=== PATIENT | female | born 1980 | race Caucasian/White ===

== ENCOUNTER 2017-09-19 23:11 | Emergency (ER) | payer MEDICAID ==
[2017-09-19 23:18] VITALS: BP 140/85
--- NOTE | 2017-09-19 23:26 | EDPHY ---
H & P Smoking Status: Current every day smoker Time Seen by Provider: 09/19/17 23:21 HPI/ROS: PHYSICIAN DOCUMENTATION: The patient was evaluated and managed by the Physician Charging Operator. My co- signature indicates that I have reviewed this chart and I agree with the findings and plan of care as documented. I am the secondary supervising physician. (Rut Mcfadden) CHIEF COMPLAINT: Right knee pain post mechanical fall HISTORY OF PRESENT ILLNESS: 37-year-old female in the ER complaining of acute right knee pain which occurred 3 hr prior to arrival when her shoe caught in tripped and she landed on her right anterior knee/patella. She is unable to bear weight. No proximal distal pain or injury. No head injury. No hip pain or injury. No ankle pain or injury. PHYSICAL EXAM (Prior to examination, patient consented to physical exam, hands were washed and my usual and customary physical exam procedures followed) 1) GENERAL: Well-developed, well-nourished, alert and oriented. Appears nontoxic answering questions appropriately. 2) HEAD: Normocephalic 3) HEENT: Pupils equal, round, reactive to light bilaterally. 4) LUNGS: Breathing comfortably. 5) MUSCULOSKELETAL: Exam of the right knee shows soft tissue swelling, tender to palpation medial aspect of right knee. . Compartments are soft. 6) SKIN: Intact no laceration no abrasion 7) VASCULAR: DP,PT pulses and cap refill present and brisk distally DIFFERENTIAL DIAGNOSIS: in no particular order including but not limited to fracture, sprain, compartment syndrome, septic arthritis, DVT Procedure: Crutches indications for crutch use discussed with patient. Patient fitted for crutches by ER staff. Observed ambulating with crutches. I think the patient has the capacity to safely use crutches. Usual and customary crutch walking precautions provided Procedure: Splint A knee immobilizer splint was applied by ER truck technician. After application of the splint I returned and re-examined the patient. The splint was adequately immobilizing the joint and distal to the splint the patient's circulation and sensation were intact. Patient shows no signs of compartment syndrome. Was given orthopedic precautions. MEDICAL DECISION MAKING Serial evaluations performed on patient. I discussed the limitations of x-ray in diagnosis of knee pain and injury. At this time I do not think that emergent MRI is currently indicated. However, I have recommended follow-up with Orthopedic surgery and provided this referral information. Informed the patient that outpatient MRI may be indicated. Doubt septic arthritis. Doubt compartment syndrome. Doubt DVT. (Lisa Hart) Constitutional: Initial Vital Signs Temperature (C) 36.7 C 09/19/17 23:15 Heart Rate 78 09/19/17 23:15 Respiratory Rate 16 09/19/17 23:15 Blood Pressure 140/85 H 09/19/17 23:15 O2 Sat (%) 92 09/19/17 23:15 O2 Delivery Mode Room Air Allergies/Adverse Reactions: No Known Allergies Allergy (Verified 09/19/17 23:18) Home Medications: Medication Instructions Recorded Alprazolam Unk Dose 08/25/12 Lyrica Unk Dose 08/25/12 Sertraline HCl 09/19/17 MDM/Departure - MDM Imaging Results: Images reviewed myself (Lisa Hart) Medications Given: Discontinued Medications Hydrocodone Bitart/Acetaminophen ([place] 5/325mg Prepack#6) 1 btl TAKEHOME EDNOW ONE Stop: 09/19/17 23:36 Last Admin: 09/19/17 23:47 Dose: 1 btl - Depart Disposition: Home, Routine, Self-Care Clinical Impression: Right knee sprain Qualifiers: Encounter type: initial encounter Involved ligament of knee: unspecified ligament Qualified Code(s): S83.91XA - Sprain of unspecified site of right knee , initial encounter Condition: Good Instructions: Knee Sprain (ED) Additional Instructions: Return to the ER immediately if you experience discoloration, have worsening pain, numbness, tingling, or any other symptoms that concern you. If you received x-rays in the emergency department today, be advised, that ligamentous , tendon, muscular, and other non-bony injury cannot be fully ruled out. Try to keep your affected extremity elevated above the level of your chest, and keep cold packs on the affected area, for the next 48 hours. Referrals: Nikko Lofton MD [Medical Doctor] - 2-3 days, call for appt.
[2017-09-19] MEDS ORDERED: HYDROCOD/APAP 5/325 PREPACK#6 BTL TAKEHOME ONE (23:35)
== END 2017-09-19 23:51 | disposition home or self-care (01) ==
DX: S83.91XA Sprain of unspecified site of right knee, initial encounter (principal); F17.200 Nicotine dependence, unspecified, uncomplicated; W01.0XXA Fall on same level from slipping, tripping and stumbling without subsequent striking against object, initial encounter
CPT/HCPCS: L1830